=== PATIENT | male | born 1975 | race African-American/Black ===

== ENCOUNTER 2016-07-18 13:31 | Emergency (ER) | payer OTHER ==
[2016-07-18] MEDS ORDERED: Lidocaine 1% with EPINEPHrine 1:100,000 20 ML MDV INJECT ONE (14:22)
[2016-07-18 15:32] VITALS: BP 147/101
--- NOTE | 2016-07-23 07:18 | CONS ---
DATE OF CONSULTATION: DATE OF : 1975 PRIMARY CARE PHYSICIAN: None PCP ADDENDUM: The patient at first agreed to incision and drainage as recommended by the doctor, that is me; however, he changed mind and even after all the instruments and number of medications and everything, slightly he changed his mind. He preferred to wait for it to mature and rupture which I think is not very good idea. However, he adamantly refused procedure and he wanted to just go home. He does not want any change in medication. He wants antibiotic. I put him on clindamycin 4 times a day 300 mg and he chose to see me in 1 week from today, although I believe he would be better served by lancing and getting the pus out. It is patient's choice and has been going on for 15 years. So, he kind of made up his mind, that is what he wants to do, and he will have a followup appointment with me in 1 week from today and he is going to be taking antibiotic which I do not think is going to work, and he also would like to continue to go to work every day, and he is discharged from the emergency room. As always, thank you for the kind referral. QUITA / WILLIE /[id number]
--- NOTE | 2016-07-23 07:18 | CONS ---
DATE OF CONSULTATION: 07/18/2016 DATE OF : 1975 PRIMARY CARE PHYSICIAN: None PCP CHIEF COMPLAINT: Perianal abscess. HISTORY OF PRESENT ILLNESS: The patient is a 41-year-old gentleman and was seen by Damaris Ceballos at [facility] today for a 4-day history of infection of the tailbone. The patient remarked that he has on and off all of this going on for about 15 years. He had drainage done one at 2002, but since then every several months it will happen again and at this time happening for 4 days. Denies fever, chills, or diarrhea and denied drainage. PAST MEDICAL HISTORY: Significant for no diabetic, ME, CVA, and hypertension. PAST SURGICAL HISTORY: Incision and drainage in 2002 of tailbone abscess. ALLERGIES: Please refer nursing note for details. MEDICATIONS: Please refer nursing note for details. FAMILY HISTORY: Noncontributory. REVIEW OF SYSTEMS: Same as history of present illness. PHYSICAL EXAMINATION: GENERAL: A very pleasant, nice gentleman, fully clothed, the patient was in street clothes when I came to the room to see the patient, in no acute distress. HEENT: Normocephalic, atraumatic. Sclerae anicteric. LUNGS: Clear to auscultation. HEART: Regular rate and rhythm. ABDOMEN: Soft, nondistended. No pulsating, tender midline abdominal structure. : Man and right in the tailbone area has a denuding skin probably about three finger from the anal opening, shiny, tight like a drum, and exquisitely sensitive to touch and tenderness, sensitive and skin is intact. Erythema and cellulitic. IMPRESSION: Perianal abscess could be pilonidal cyst infection and the patient would benefit from incision and drainage and also packing of the wound. Risks and benefits discussed with the patient and regarding of further treatment or the diagnosis of the pathophysiology. The patient decided not to do anything and would like to let it pop by itself according to the patient's word and will prefer to make appointment to see me one week from today. More discussed with the patient regarding treatment and patient just shook his head. Thank you for the kind referral. QUITA / WILLIE /[id number]
== END 2016-07-18 15:27 | disposition home or self-care (01) ==
LOC: MW.ED 13:31
DX: K61.0 Anal abscess (principal)
CPT/HCPCS: 99282